=== PATIENT | female | born 2000 | race Caucasian/White ===

== ENCOUNTER 2020-10-24 10:26 | Emergency (ER) | payer OTHER, SELFPAY ==
[2020-10-24 10:57] VITALS: BP 105/64; PULSE 70; RESP 12; TEMP 36.4; O2SAT 99
--- NOTE | 2020-10-24 11:23 | ED.SKABFB ---
HPI - Skin/Abscess/Foreign Bdy General Chief complaint: Skin/Abscess/Foreign Body Stated complaint: RASH Source: patient and RN notes reviewed Limitations: no limitations History of Present Illness HPI narrative: The patient, who is apparently a massage therapist, presents with eruption. Patient states she has about half week history of mostly bilateral forearm eruption that is pink, itchy, blanches and raised. She comments that may have started between her fingers, and she does not wear gloves for massages and primarily uses her hands and forearms. No other rash/distribution, no streaking. Advised to use barrier protections, avoid topical irritants, avoid water based massages [which she does sometimes], and keep photo log of the area. Related Data Allergies Allergy/AdvReac Type Severity Reaction Status Date / Time No Known Allergies Allergy Unknown Unverified 10/24/20 11:00 Review of Systems Review of Systems: Narrative: General/Constitutional: No weight loss,fever Eyes: N0: Redness,discharge Ears/Nose/Throat: No: Epistaxis,ear discharge Respiratory: Denies: Hemoptysis Gastrointestinal: No Vomiting, Bleeding-rectal Skin: No Lumps, REPORTS eruption Neurologic: No Focal Weakness,Sz Hematologic: Denies: Petechiae/Purpura Psychiatric: No: Suicida ideationl All Other Systems: Reviewed and Negative PMFSH Family History Family History (Updated 06/05/14 @ 07:13 by DOCTOR UNKNOWN) Grandparent Family history of gout Depression Hypertension Family history of alcoholism Father Family history of schizophrenia Mother Depression Family history of attention deficit hyperactivity disorder (ADHD) Comments At time of signature, agree with nursing past medical, surgical, social and family history. There is no relevant family history pertinent to the presenting complaint Exam Narrative: Exam Narrative: General Appearance: Well-nourished Normocephalic Conjunctiva clear Ear: External ear normal Nose: Normal nose, Nare clear Mouth/Throat: Normal appearing Neck Exam: Supple Respiratory: Airway patent, No respiratory distress Musculoskeletal: Moves all extremities, Non tender Skin: Warm, Dry ; bilateral, discrete, smaller, macular papular eruption on bilateral forearms Neurological: A&O x3, normal affect Course Vital Signs Vital signs: Vital Signs Temperature 97.6 F 10/24/20 10:57 Pulse Rate 70 10/24/20 10:57 Respiratory Rate 12 10/24/20 10:57 Blood Pressure 105/64 10/24/20 10:57 Pulse Oximetry 99 10/24/20 10:57 Temperature 97.6 F 10/24/20 10:57 Pulse Rate 70 10/24/20 10:57 Respiratory Rate 12 10/24/20 10:57 Blood Pressure 105/64 10/24/20 10:57 Pulse Oximetry 99 10/24/20 10:57 Discharge Plan Discharge Clinical Impression: Folliculitis Patient Disposition: Home, Self-Care Condition: Stable Instructions: Folliculitis (ED) Additional Instructions: Keep photo log of area, for possible hot tub folliculitis, etc Prescriptions: New clindamycin HCl 300 mg capsule 300 mg PO TID Qty: 15 RF: 0 fluconazole 150 mg tablet 150 mg PO WEEKLY Qty: 2 RF: 1 loratadine [Claritin] 10 mg tablet 10 mg PO DAILY Qty: 20 RF: 0 Follow-up/Referrals: Poncho Leo MD [Primary Care Provider] -
[2020-10-24] MEDS: SILVER SULFADIAZINE 1% CR 50 GM JAR (*BKC) 1 APPLIC TOPICAL (11:42)
== END 2020-10-24 11:45 | disposition home or self-care (01) ==
PROVIDERS: Emergency Provider Emergency Medicine; PCP Emergency Medicine
DX: L73.9 Follicular disorder, unspecified (principal)
CPT/HCPCS: 99213; A9270; G0463

== ENCOUNTER 2021-03-28 18:11 | Emergency (ER) | payer OTHER, SELFPAY ==
[2021-03-28 18:17] VITALS: BP 113/56; PULSE 58; RESP 16; TEMP 36.9; O2SAT 100
--- NOTE | 2021-03-28 18:35 | ED.SKABFB ---
HPI - Skin/Abscess/Foreign Bdy General Chief complaint: Skin/Abscess/Foreign Body Stated complaint: Rash Time Seen by Provider: 03/28/21 18:26 Source: patient and RN notes reviewed Mode of arrival: ambulatory Limitations: no limitations History of Present Illness HPI narrative: Patient presents today complaining of multiple tiny areas of pruritic rash to all extremities and a few areas to abdomen x4 days that continue to worsen since she arrived home from [facility]. States the friends that she went campchanning home with have similar rash but much worse. She has tried hydrocortisone with mild relief. MD complaint: rash Related Data Home Medications Medication Instructions Recorded Confirmed epinephrine 0.3 mg IM USEASDIRECTD PRN 03/28/21 03/28/21 multivitamin [Daily Multivitamin] 1 tablet PO DAILY 03/28/21 03/28/21 Allergies Allergy/AdvReac Type Severity Reaction Status Date / Time No Known Allergies Allergy Unknown Unverified 03/28/21 18:17 Review of Systems Review of Systems: Narrative: CONSTITUTIONAL: Denies body aches, fever, chills, or sweats. EYES: Denies visual changes, redness, or discharge. ENT: Denies rhinorrhea, congestion, sore throat, or otalgia. CARDIOVASCULAR: Denies chest pain, palpitations, or edema. RESPIRATORY: Denies cough or dyspnea. GASTROINTESTINAL: Denies abdominal pain, nausea, vomiting, or diarrhea. GENITOURINARY: Denies dysuria or hematuria. SKIN: Denies wounds.+ Pruritic rash MUSCULOSKELETAL: Denies back pain, joint pain, or myalgia. NEUROLOGIC: Denies headache, numbness, tingling, or weakness. PSYCH: Denies depression or anxiety. PMFSH Family History Family History Grandparent Family history of gout Depression Hypertension Family history of alcoholism Father Family history of schizophrenia Mother Depression Family history of attention deficit hyperactivity disorder (ADHD) Comments At time of signature, I have reviewed and agree with nursing past medical, surgical, social and family history unless otherwise noted. Please see nursing chart for further information. There is no relevant family history pertinent to the presenting complaint Exam Narrative: Exam Narrative: GENERAL: Well-appearing, well-nourished, and in no acute distress. HEAD: Normocephalic, atraumatic. EYES: EOMI. No redness or drainage. Conjunctivae normal. ENT: Mucous membranes pink and moist. NECK: Normal AROM. CHEST: No respiratory distress. EXTREMITIES: Normal range of motion. No edema. SKIN: Warm, dry. Capillary refill normal. Normal skin turgor. Few scattered faintly erythematous papules over the extremities and 1 to the abdomen, consistent with tiny bug bites. No surrounding induration, no fluctuance, no drainage or pustules. NEURO: No focal deficits. Alert and oriented x3. Gait steady. PSYCH: Normal affect. No signs of depression or anxiety. Course Vital Signs Vital signs: Vital Signs Temperature 98.5 F 03/28/21 18:17 Pulse Rate 58 L 03/28/21 18:17 Respiratory Rate 16 03/28/21 18:17 Blood Pressure 113/56 L 03/28/21 18:17 Pulse Oximetry 100 03/28/21 18:17 Temperature 98.5 F 03/28/21 18:17 Pulse Rate 58 L 03/28/21 18:17 Respiratory Rate 16 03/28/21 18:17 Blood Pressure 113/56 L 03/28/21 18:17 Pulse Oximetry 100 03/28/21 18:17 Reviewed MDM - Skin/Abscess/Foreign Bdy Differential Diagnosis Differential diagnosis: Likely abscess of skin or subcutaneous tissue, viral exanthem, urticaria, cellulitis, insect bites, impetigo and contact dermatitis Critical Care Time Critical Care Time Critical Care Time: No Discharge Plan Discharge Clinical Impression: Insect bites Qualifiers: Encounter type: initial encounter Site of insect bite: unspecified site Qualified Code(s): W57.XXXA - Bitten or stung by nonvenomous insect and other nonvenomous arthropods, initial encounter Patient Disposition: Home,
== END 2021-03-28 18:40 | disposition home or self-care (01) ==
PROVIDERS: Emergency Provider Nurse Practitioner; PCP Emergency Medicine
DX: S40.862A Insect bite (nonvenomous) of left upper arm, initial encounter (principal); S40.861A Insect bite (nonvenomous) of right upper arm, initial encounter; S80.862A Insect bite (nonvenomous), left lower leg, initial encounter; S80.861A Insect bite (nonvenomous), right lower leg, initial encounter; S30.861A Insect bite (nonvenomous) of abdominal wall, initial encounter; W57.XXXA Bitten or stung by nonvenomous insect and other nonvenomous arthropods, initial encounter; J45.909 Unspecified asthma, uncomplicated
CPT/HCPCS: 99213; G0463

== ENCOUNTER 2021-04-17 16:07 | Emergency (ER) | payer OTHER, SELFPAY ==
[2021-04-17 16:10] VITALS: BP 132/82; PULSE 76; RESP 16; TEMP 36.5; O2SAT 99
--- NOTE | 2021-04-17 16:11 | ED.FEMALEGU ---
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 Patient states that she has been treating her vaginal yeast infection for approximately 1 week with [id number] Monistat but it is just not improving . Patient states that she has thick white odorless vaginal discharge with vaginal itching. Patient states that this is her normal symptoms for a vaginal yeast infection which typically clear up with the Monistat. Patient states she has them recurrently even if only drinking 1 glass of wine . Patient reports sitting in a bathing suit all day on April 11 and believes that what caused her current yeast infection. Patient denies of any abdominal pain, dysuria, frequency or urgency. Denies of being at risk for STDs. No other acute complaints. No acute distress noted. Patient aware of the plan of care. Some parts of this dictation were generated by voice recognition software and may contain typographical and/or grammatical inaccuracies. Related Data Home Medications Medication Instructions Recorded Confirmed multivitamin [Daily Multivitamin] 1 tablet PO DAILY 03/28/21 03/28/21 Allergies Allergy/AdvReac Type Severity Reaction Status Date / Time No Known Allergies Allergy Unknown Unverified 03/28/21 18:17 Review of Systems Review of Systems: Narrative: CONSTITUTIONAL: Denies fever, chills, or sweats. EYES: Denies visual changes, redness, or discharge. ENT: Denies rhinorrhea, congestion, sore throat, or otalgia. CARDIOVASCULAR: Denies chest pain, palpitations, or edema. RESPIRATORY: Denies cough or dyspnea. GASTROINTESTINAL: Denies abdominal pain, nausea, vomiting, or diarrhea. GENITOURINARY: Denies dysuria or hematuria. Reports of odorless white thick vaginal discharge and vaginal itching SKIN: Denies rash or itching. MUSCULOSKELETAL: Denies back pain, joint pain, or myalgia. NEUROLOGIC: Denies headache, numbness, or weakness. All other systems reviewed are negative, except as documented in HPI. [facility] Family History Family History Grandparent Family history of gout Depression Hypertension Family history of alcoholism Father Family history of schizophrenia Mother Depression Family history of attention deficit hyperactivity disorder (ADHD) Comments At the time of my signature, I reviewed and agree with the nursing past medical, surgical, social, and family history. There is no relevant family history pertinent to the patient complaint. Exam Narrative: Exam Narrative: GENERAL: This is a well-nourished, well-developed patient, in no apparent distress. HEAD: normocephalic, atraumatic. EYES: PERRL. Sclera clear/white. Vision is grossly intact. EARS: External ears normal NOSE: External nose normal with no obvious nasal discharge, nares without redness, no rhinorrhea. THROAT: Mucous membranes moist NECK: Neck supple CARDIOVASCULAR: Regular rate and rhythm without murmurs, gallops, or rubs. RESPIRATORY: Clear to auscultation. Breath sounds equal bilaterally. No wheezes, rales, or rhonchi. SKIN: warm, intact with no suspicious lesions or rash, good texture and turgor. NEURO: awake, alert, and oriented to person, place and time. There were no obvious focal neurologic abnormalities. EXTREMITIES: No clubbing, cyanosis, or edema. Course Vital Signs Vital signs: Vital Signs Temperature 97.7 F 04/17/21 16:10 Pulse Rate 76 04/17/21 16:10 Respiratory Rate 16 04/17/21 16:10 Blood Pressure 132/82 04/17/21 16:10 Pulse Oximetry 99 04/17/21 16:10 Temperature 97.7 F 04/17/21 16:10 Pulse Rate 76 04/17/21 16:10 Respiratory Rate 16 04/17/21 16:10 Blood Pressure 132/82 04/17/21 16:10
== END 2021-04-17 16:22 | disposition home or self-care (01) ==
PROVIDERS: Emergency Provider Nurse Practitioner Family; PCP Emergency Medicine
DX: B37.3 Candidiasis of vulva and vagina (principal); J45.909 Unspecified asthma, uncomplicated
CPT/HCPCS: 99213; G0463

== ENCOUNTER 2021-06-09 10:51 | Emergency (ER) | payer OTHER, SELFPAY ==
[2021-06-09 11:01] VITALS: BP 106/60; PULSE 75; RESP 16; TEMP 36.7; O2SAT 99
--- NOTE | 2021-06-09 11:04 | ED.URI ---
HPI - URI/Sore Throat General Chief Complaint: Upper Respiratory Infection Stated Complaint: vomiting/sore throat/white spots Source: patient and RN notes reviewed Mode of arrival: ambulatory History of Present Illness HPI Narrative: This is a 20-year-old female who presented to urgent care with complaints of a sore throat, subjective fever, nausea and vomiting, right back pain and dysuria. Patient noted that she noticed white patches in the back of her throat a couple of days ago. She did not do anything at home to relieve her symptoms. She is requesting a strep test. The patient denies SOB, CP, palpitation, extremity numbness, lightheadedness, dizziness, constipation, diarrhea, chills, . Patient labs reviewed UA negative for UTI and strep negative MD elicited complaint: fever Related Data Allergies Allergy/AdvReac Type Severity Reaction Status Date / Time No Known Allergies Allergy Unknown Unverified 03/28/21 18:17 Review of Systems Review of Systems: A 14 organ system Review of Systems was performed and pertinent positives included in the HPI, otherwise remaining ROS is negative. [facility] [place] Family History Family History Grandparent Family history of gout Depression Hypertension Family history of alcoholism Father Family history of schizophrenia Mother Depression Family history of attention deficit hyperactivity disorder (ADHD) Exam Narrative: GENERAL: This is a well-nourished, well-developed patient, in no apparent distress. HEAD: normocephalic, atraumatic. EYES: PERRL. Sclera clear/white. Vision is grossly intact. EARS: External ears normal, auditory canals clear and without drainage, TMs normal without perforation. Hearing grossly intact. NOSE: External nose normal with no obvious nasal discharge, nares without redness, no rhinorrhea. THROAT: Mucous membranes moist, posterior pharynx edematous. NECK: Neck supple, non-tender without lymphadenopathy, masses or thyromegaly. CARDIOVASCULAR: Regular rate and rhythm without murmurs, gallops, or rubs. RESPIRATORY: Clear to auscultation. Breath sounds equal bilaterally. No wheezes, rales, or rhonchi. GASTROINTESTINAL: Abdomen soft, non-tender, nondistended. Bowel sounds are active. No hepato-splenomegaly, or palpable masses. No guarding.cva negative SKIN: warm, intact with no suspicious lesions or rash, good texture and turgor. NEURO: awake, alert, and oriented to person, place and time. There were no obvious focal neurologic abnormalities. Steady gait EXTREMITIES: Normal range of motion. No edema. No calf tenderness. Negative Homans sign bilaterally. BACK: Nontender without deformity or crepitance. No flank tenderness. Course Course Emergency Course: Patient was discharged with Augmentin for pharyngitis Vital Signs Vital signs: Vital Signs Temperature 98.1 F 06/09/21 11:01 Pulse Rate 75 06/09/21 11:01 Respiratory Rate 16 06/09/21 11:01 Blood Pressure 106/60 06/09/21 11:01 Pulse Oximetry 99 06/09/21 11:01 Temperature 98.1 F 06/09/21 11:01 Pulse Rate 75 06/09/21 11:01 Respiratory Rate 16 06/09/21 11:01 Blood Pressure 106/60 06/09/21 11:01 Pulse Oximetry 99 06/09/21 11:01 MDM - URI/Sore Throat Differential Diagnosis Differential diagnosis: Likely upper respiratory infection, viral infection, pharyngitis and other (uti) Lab Data Labs: Strep Screen Presumptive Negative *(Reference Range: Negative)* Urine Glucose Negative Reference Range: Negative Urine Bilirubin Negative Reference Range: Negative Urine Ketone Negative Reference Range: Negative Urine Specific [place] 1.015
== END 2021-06-09 11:32 | disposition home or self-care (01) ==
PROVIDERS: Emergency Provider Nurse Practitioner; PCP Emergency Medicine
DX: J02.9 Acute pharyngitis, unspecified (principal)
CPT/HCPCS: 81003; 87081; 87880; 99213; G0463

== ENCOUNTER 2021-08-31 07:12 | Outpatient (CLI) | payer OTHER, SELFPAY ==
--- NOTE | ~2021-08-31 | US_ITS ---
EXAMINATION: US abdomen complete DATE: 08/31/2021 07:57 INDICATION: Abdominal pain. TECHNIQUE: Multiple grayscale and Doppler ultrasound images of the abdomen were obtained. COMPARISON: None FINDINGS: The visualized portions of the head and body of the pancreas are normal. The liver is gretchen l without focal lesion. No liver surface nodularity. There is normal flow in main portal vein. The ga llbladder is normal in size. No gallstones or gallbladder wall thickening. There was no sonographic M urphy sign. The common duct is normal and measures 3 mm. The kidneys are normal in size. The spleen i s normal in size. The abdominal aorta is normal in caliber. Inferior vena cava is normal. IMPRESSION: 1. No etiology for the patient's symptoms. Reviewed, dictated and finalized at location [facility]. [facility]GAL
== END 2021-08-31 07:13 | disposition home or self-care (01) ==
LOC: ANHIMG 07:19
PROVIDERS: PCP Emergency Medicine; Visit Provider Emergency Medicine
DX: R10.9 Unspecified abdominal pain (principal)
CPT/HCPCS: 76700

== ENCOUNTER 2022-04-07 18:05 | Emergency (ER) | payer OTHER, SELFPAY ==
[2022-04-07 18:10] VITALS: BP 129/68; PULSE 82; RESP 12; TEMP 37; O2SAT 100
--- NOTE | 2022-04-07 18:19 | ED.GENADULT ---
HPI - General Adult General Chief complaint: Unspecified Stated complaint: allergic reaction,dizzy,nauseous Time Seen by Provider: 04/07/22 18:20 Source: patient Mode of arrival: ambulatory Limitations: no limitations History of Present Illness HPI narrative: 3-year-old female presents with concern for ingestion of potential toxic substance. Reports this morning around 8:00 she made a smoothie with frozen cherries. She reports she did not realize the cherries had pets when she made the smoothie and ground up [place]. She reports she ate approximately between 2 and 6 ground [place]. She reports she has had mild nausea, dizziness, photosensitivity and blurry vision. She denies trouble breathing, cough, fatigue, weakness, headache, confusion. Reports she took Tylenol complaint: Ingestion Related Data Allergies Allergy/AdvReac Type Severity Reaction Status Date / Time No Known Allergies Allergy Unknown Unverified 03/28/21 18:17 Review of Systems Review of Systems: CONSTITUTIONAL: Denies malaise, chills, sweats, or fever. EYES: Reports blurry vision and light sensitivity ENT: Denies rhinorrhea, congestion, sinus pain, otalgia or sore throat. CARDIOVASCULAR: Denies chest pain, palpitations, or edema. RESPIRATORY: Denies cough or dyspnea. GASTROINTESTINAL: Denies abdominal pain, vomiting, diarrhea,. Reports nausea GENITOURINARY: Denies dysuria or hematuria. SKIN: Denies rash or itching. MUSCULOSKELETAL: Denies back pain, joint pain, or myalgia. NEUROLOGIC: Denies numbness, weakness, or headache. Reports dizziness PSYCHIATRIC: Denies anxiety or depression. All systems reviewed & are unremarkable except as noted in HPI and below PMFSH Family History Family History Grandparent Family history of gout Depression Hypertension Family history of alcoholism Father Family history of schizophrenia Mother Depression Family history of attention deficit hyperactivity disorder (ADHD) Comments At time of signature, agree with nursing past medical, surgical, social and family history. There is no relevant family history pertinent to the presenting complaint Exam Narrative: GENERAL: Well-appearing, well-nourished, and in no acute distress. HEAD: Normocephalic, atraumatic. EYES: PERRLA, sclera clear, and EOMI. No nystagmus. ENT: Nares clear, turbinates pink, no rhinorrhea or epistaxis. Mucous membranes moist. NECK: Supple. No lymphadenopathy. CHEST: No respiratory distress. Clear to auscultation. No bony deformities, no asymmetry. Speaks in full sentences. HEART: Regular rate and rhythm. No murmur heard. Normal peripheral pulses. EXTREMITIES: Normal range of motion. No edema. Normal strength and sensation. SKIN: Warm, dry, no visible rash. NEURO: Alert and oriented x3. No focal deficits. Cranial nerves II through XII grossly intact PSYCH: Normal mood and affect Course Course Emergency Course: Consulted with Jael (case #[id number]) at [facility] regarding ingestion of ground she reports. She advised that symptoms would be at their worst approximately 6 hours after ingestion. Patient is well passed that window. She advised that if patient has a reassuring exam that patient observation at home is reasonable. Patient's exam is unremarkable. Discussed with patient, patient is agreeable to plan to go home and will return to emergency room if symptoms worsen. Patient is aware of diagnosis, understands and agrees to treatment plan. Anticipatory guidance given. Patient agrees to follow-up as directed and is aware of reasons to seek care at the emergency department. Portions of this record may have been created with voice recognition software Level of Care: Express Care Visit Vital Signs Vital signs: Vital Signs Temperature 98.6 F 04/07/22 18:10 Pulse Rate 82 04/07/22 18:10 Respiratory Rate 12 04/07/22 18:10 Blood Pressure 129/68 04/07/22 18:1
== END 2022-04-07 18:36 | disposition home or self-care (01) ==
PROVIDERS: Emergency Provider Nurse Practitioner; PCP Clinical Nurse Specialist
DX: T65.0X1A Toxic effect of cyanides, accidental (unintentional), initial encounter (principal); J45.909 Unspecified asthma, uncomplicated
CPT/HCPCS: 99211; G0463